=== PATIENT | female | born 1955 | race Caucasian/White ===

== ENCOUNTER → 2017-05-20 | Outpatient (CLI) | payer BC ==
--- NOTE | 2017-05-20 15:23 | REPMRS ---
Patient History The patient states she had a clinical breast exam in 05/2017. Patient is postmenopausal. Family history of breast cancer in paternal aunt. Reductions of both breasts, 2008. Taking unspecified hormones for 6 years 6 months. Digital Woman Screen Mammo: May 20, 2017 - Exam #: [id number] Bilateral CC and MLO view(s) were taken. Technologist: Chelle Clarke, Technologist Prior study comparison: May 18, 2016, digital woman screen mammo performed at [facility]. May 17, 2015, digital woman screen mammo performed at [facility]. FINDINGS: There are scattered fibroglandular densities. There has been no change in the appearance of the mammogram from the prior studies. There is a mild amount of residual fibroglandular tissue which is fairly symmetric. There is no interval development of dominant mass, architectural distortion, or clustered microcalcification suggestive of malignancy. ASSESSMENT: BI-RADS/ACR category 1 mammogram. Negative. Recommendation Routine screening mammogram in 1 year (for women over age 40). This mammogram was interpreted with the aid of an FDA-approved computer-aided dectection system. Electronically Signed By: Hayden Price MD 05/20/17 [id number]
== END ==
LOC: M WHC 14:32
PROVIDERS: ATTEND Nurse Practitioner Family
DX: Z12.31 Encounter for screening mammogram for malignant neoplasm of breast (principal); Z78.0 Asymptomatic menopausal state; Z79.890 Hormone replacement therapy

== ENCOUNTER → 2017-12-26 | Outpatient (CLI) | payer BC | LOC: M LRY 18:08 | DX: R01.1 Cardiac murmur, unspecified (principal); I10 Essential (primary) hypertension ==

== ENCOUNTER → 2018-06-27 | Outpatient (CLI) | payer BC | LOC: M WHC 14:39 | DX: Z12.31 Encounter for screening mammogram for malignant neoplasm of breast (principal) | CPT/HCPCS: 77067 ==

== ENCOUNTER → 2019-07-13 | Outpatient (CLI) | payer BC ==
--- NOTE | 2019-08-03 11:39 | ECWPNPC ---
PATIENT NAME: ALEJANDRA MARTIN : 1955 GENDER: FEMALE VISIT DATE: 07/13/2019 DISCHARGE DATE: 07/13/19 1602 VISIT LOCKED DATE TIME: PHYSICIAN: WILLIE HUNT MD RESOURCE: WILLIE HUNT MD REASON FOR APPOINTMENT 1. LEFT HIP PIRIFORMIS SYNDROME HISTORY OF PRESENT ILLNESS PAIN SCREENING: PATIENT HAS A COMPLAINT OF ACUTE OR CHRONIC PAIN :YES 64 YEAR OLD FEMALE PATIENT WITH A HISTORY OF CHRONIC LEFT LEG PAIN. THE PATIENT DESCRIBES THE PAIN ACHING, STABBING, CONSTANT, TENSE, AND SHOOTING WITH A PAIN SCORE OF 6-9/10 DEPENDING ON PHYSICAL ACTIVITY. THE PATIENT STATES HER LEFT LEG PAIN BEGAN ON 10/14/2018 AFTER SHE FELL IN HER DRIVEWAY DUE TO ICE THAT RESULTED IN A BROKEN SHOULDER AND HER LEG PAIN. THE PATIENT SAYS HER PAIN BEGINS IN HER LEFT BUTTOCK AND RADIATES DOWN THROUGH HER LEFT LEG TO HER ANKLE. THE PATIENT SAYS HER LEFT LEG PAIN IS AFFECTING HER ABILITY TO PERFORM HER DAILY ACTIVITIES SUCH BENDING, SITTING, AND WALKING. THE PATIENT SAYS NSAID'S DON'T TOUCH HER PAIN AND SHE WAS USING GABAPENTIN 300 MG UP TO TWO TABLET DAILY IN THE PAST THAT HELPED WITH PAIN RELIEF. THE PATIENT MENTIONS SHE HAS HAD LEFT GREATER TROCHANTER OF FEMUR INJECTIONS DONE IN THE PAST THAT HELPED PROVIDE SOME PAIN RELIEF FOR HER. PATIENT DENIES UNEXPLAINABLE WEIGHT LOSS, FEVER, CHILLS, NEW CHANGES ON HER URINARY OR BOWEL CONTROL. FALL RISK SCREENING: SCREENING :NO FALLS REPORTED IN THE LAST YEAR CURRENT MEDICATIONS TAKING TESTOSTERONE 2 MG/GRAM CREAM 1 GM TRANSDERMAL ONCE A DAY DX. CODE F MDD = 1 GRAM, NOTES: USE OF COMPOUNDED MEDICATIONS IS IN THE BEST CLINICAL INTEREST OF THIS PATIENT. CODE F TAKING ESTRIOL 1 MG CREAM 1/2 GM INTRAVAGINALLY TWICE WEEKLY, NOTES: CS-ESTRIOL, NATURAL WHIP CREAM TAKING LISINOPRIL 20 MG TABLET 1 TABLET ORALLY ONCE A DAY TAKING GABAPENTIN 300 MG CAPSULE 1 CAPSULE ORALLY ONCE A DAY TAKING CHLORTHALIDONE 25 MG TABLET 1/2 TABLET IN THE MORNING WITH FOOD ORALLY ONCE A DAY TAKING TRAMADOL HCL 50 MG TABLET 1 TABLET NEEDED ORALLY ONCE A DAY TAKING PROGESTERONE 40 % CREAM DIRECTED TAKING MARIZA-C - TABLET DIRECTED ORALLY TAKING GARLIC 580 MG CAPSULE DIRECTED ORALLY TAKING MAGNESIUM 400 MG CAPSULE DIRECTED ORALLY TAKING COQ10 200 MG CAPSULE 1 CAPSULE WITH A MEAL ORALLY ONCE A DAY TAKING CALCIUM + D 315-200 MG-UNIT TABLET 1 TABLET ORALLY TWICE A DAY TAKING MILK THISTLE 1000 MG CAPSULE DIRECTED ORALLY TAKING FENUGREEK 610 MG CAPSULE DIRECTED ORALLY TAKING MELATONIN 3-10 MG TABLET DIRECTED ORALLY TAKING METAXALONE 800 MG TABLET 1 TABLET ORALLY THREE TIMES A DAY MEDICATION LIST REVIEWED AND RECONCILED WITH THE PATIENT PAST MEDICAL HISTORY HYPERTENSION DDD (CERVICAL) DIVETICULITIS ATTACK 03/2015 MICROSCOPIC HEMATURIA [address] [facility]BASTIAN PAIGE [facility]. SURGICAL HISTORY BREAST REDUCTION C SECTION X 2 FX REPAIR LEFT LEG BILAT CARPAL RELEASE TUNNEL RIGHT KNEE FROM MENISCUS-ARTHOSCOPY X2 MOLE REMOVAL FROM LOWER BACK COLONOSCOPY 2015 HYSTERECTOMY WITH BSO LARGE FIBROID 10/2011 CYSTOSCOPY NORMAL 2016 LEFT LEG BROKEN PLATE PLACED FAMILY HISTORY FATHER: 82 YRS, DIABETES, BP MOTHER: 72 YRS, DIABETES, OSTEOPOROSIS, WITH SPINAL FX PATERNAL AUNT: MID 40'S YRS, BREAST CANCER 1 BROTHER(S) , 1 SISTER(S) . 1 SON(S) , 1 DAUGHTER(S) - HEALTHY. BROTHER AND SISTER BOTH WITH HYPERTENSION, ETOH DIFFICULTIES. DENIES FAMILY HX OF COLON OR OVARIAN CANCER. SOCIAL HISTORY GENERAL: TOBACCO USE ARE YOU A:FORMER SMOKER HOW LONG HAS IT BEEN SINCE YOU LAST SMOKED?> 10 YEARS HIV / HEP-C SCREENING HIV TEST OFFERED TO PATIENT:YES DATE OFFERED:06/27/2018 TEST ACCEPTED:NO REASON:PATIENT DECLINED BROCHURE PROVIDED TO PATIENTYES OTHERS AT HOME: SPOUSE. EDUCATION LEVEL OF EDUCATION:HIGH SCHOOL DIET: LOW FAT, LOW CHOLESTEROL,, CARBOHYDRATE CONTROLLED. IMPROVED AND HAS LOST 11 POUNDS OVER THE PAST FEW MONTHS.. LANGUAGE LANGUAGES SPOKEN:ALBANIAN DOMESTIC VIOLENCE DENIES ABUSE. BMI CARE GOAL FOLLOW-UP ABOVE NORMAL BMI FOLLOW-UPGIVING ENCOURAGEMENT TO EXERCISE RECREATIONAL DRUG USE DENIES. EXERCISE: NO REGULAR EXERCISE. LEARNING BARRIERS / SPECIAL NEEDS CHANGE FROM LAST VISIT?NO BARRIERS TO LEARNING?NO HEARING IMPAIRED?NO VISION IMPAIRED?YES :CORRECTIVE LENSES COGNITIVELY IMPAIRED?NO READINESS TO LEARN?YES LEARNING PREFERENCES?NO LEARNING CAPABILITIES PRESENT?YES EMOTIONAL BARRIERS?NO SPECIAL DEVICES?NO MANAGER RECRUITING NEEDED?NO PAIN CLINIC PFS, CLERGY, PUBLIC HEALTH REFERRALS HAS THE PATIENT BEEN EDUCATED REGARDING HIS/HER PLAN OF CARE?YES HAS THE PATIENT BEEN EDUCATED REGARDING PAIN, THE RISK FOR PAIN, THE IMPORTANCE OF EFFECTIVE PAIN MANAGEMENT, AND THE PAIN ASSESSMENT PROCESS?YES CAFFEINE 2 COFFEES IN AM. ADVANCE DIRECTIVE ADVANCE DIRECTIVE DISCUSSED WITH PATIENT:YES BAHAI [id number] [employer] MARITAL STATUS: . ALCOHOL SCREENING DID YOU HAVE A DRINK CONTAINING ALCOHOL IN THE PAST YEAR?YES HOW OFTEN DID YOU HAVE SIX OR MORE DRINKS ON ONE OCCASION IN THE PAST YEAR?NEVER (0 POINTS) HOW MANY DRINKS DID YOU HAVE ON A TYPICAL DAY WHEN YOU WERE DRINKING IN THE PAST YEAR?1 OR 2 (0 POINTS) HOW OFTEN DID YOU HAVE A DRINK CONTAINING ALCOHOL IN THE PAST YEAR?MONTHLY OR LESS (1 POINT) POINTS1 INTERPRETATIONNEGATIVE OCCUPATION: [employer] AT [employer]. SEXUAL HX HAD SEX IN THE LAST 12 MONTHS (VAGINAL, ORAL, OR ANAL)?NO LMP:POSTMENO HAVE YOU EVER HAD AN STD?NO HOSPITALIZATION/MAJOR DIAGNOSTIC PROCEDURE SURGERIES REVIEW OF SYSTEMS REVIEWED BY: PROVIDER: WILLIE HUNT MD . CONSTITUTIONAL: ANY CHANGE IN YOUR MEDICAL CONDITION? NO . CHILLS NO . FEVER NO . INFECTION: DO YOU HAVE NEW INFECTIONS? NO . DO YOU HAVE HISTORY OF MRSA? NO . MUSCULOSKELETAL: ANY NEW PATTERNS OF PAIN OR NUMBNESS? NO . SYTEMIC LUPUS NO . GASTROENTEROLOGY: ANY NEW CHANGE IN BOWEL CONTROL? NO . BARRETTS ESOPHAGUS NO . CIRRHOSIS NO . HEPATITIS NO . LIVER FAILURE NO . ACID REFLUX NO . UNEXPLAINED WEIGHT LOSS NO . GENITOURINARY: ANY NEW CHANGE IN BLADDER CONTROL? NO . IS THERE A CHANCE YOU COULD BE ? NO . HEMATOLOGY/LYMPH: DO YOU TAKE ANY BLOOD THINNERS? (FOR EXAMPLE- COUMADIN, PLAVIX, AGGRENOX, PLATEL, PRADAXA, OR XARELTO) NO . WHEN WAS YOUR LAST DOSE? DATE: TIME: . LOW PLATELET COUNT NO . SICKLE CELL DISEASE NO . VON WILLIEBRANDS NO . FACTOR V LEIDEN NO . THALLASEMIA NO . ANEMIA NO . EASY BRUISING NO . NEUROLOGY: HAVE YOU FALLEN IN THE PAST 12 MONTHS? YES, PT FELL 10/2018 FROM SLIPPING ON ICE . ANY NEW EXTREMITY NUMBNESS OR WEAKNESS? YES, LEFT SCIATICA . HEAD INJURY NO . DEMENTIA NO . CEREBRAL PALSY NO . MULTIPLE SCLEROSIS NO . DIZZINESS NO . HEADACHE NO . STROKES NO . VERTIGO NO . CARDIOLOGY: DO YOU HAVE A PACEMAKER OR DEFIBRILLATOR? NO . ANGINA NO . HEART ATTACK NO . HEART SURGERY NO . CONGESTIVE HEART FAILURE/FLUID OVERLOAD NO . CHEST PAIN NO . HIGH BLOOD PRESSURE NO . IRREGULAR HEART BEAT NO . RESPIRATORY: HAVE YOU BEEN SICK IN THE PAST WEEK? NO . FEVER NO . FLU LIKE SYMPTOMS? NO . CPAP NO . BYPAP NO . ASTHMA NO . EMPHYSEMA NO . CHRONIC LUNG DISEASES NO . SHORTNESS OF BREATH ON EXERTION NO . COUGH NO . SNORING NO . INTEGUMENTARY: DO YOU HAVE ANY RASHES OR OPEN SORES? NO . ALLERGIC/IMMUNO: ARE YOU ALLERGIC TO IV DYE? NO . ANY NEW ALLERGIES? NO . PSYCHIATRIC: DO YOU HAVE THOUGHTS OF HURTING YOURSELF OR SOMEONE ELSE? NO . ARE YOU ABUSED, NEGLECTED, OR IN AN UNSAFE ENVIRONMENT? NO . ENDOCRINOLOGY: ARE YOU DIABETIC? NO . THYROID DISORDER NO . OTHER: DO YOU NEED ANY PRESCRIPTIONS? YES, TRAMIDOL . IF YES, PLEASE LIST: ____ . ANY NEW PROBLEMS WITH YOUR MEDICATIONS? NO . WHEN DID YOU LAST EAT? ____ . WHEN DID YOU LAST DRINK? ____ . WHAT DID YOU LAST DRINK? ____ . NAME OF PERSON DRIVING YOU HOME? ____ . DO YOU HAVE ANY OTHER QUESTIONS OR CONCERNS YES, FLU SHOT MAYBE TODAY . VITAL SIGNS WT 207.8 LBS, HT 62 IN, BMI 38.00 INDEX, BP 143/70 MM HG, HR 85 /MIN, RR 18 /MIN, TEMP 96.0 F, OXYGEN SAT % 97%, NA INITIALS AW 1410, REVIEWED BY: EM. EXAMINATION GENERAL EXAMINATION: PATIENT IS ALERT O X 3 AND COOPERATIVE. LUNGS CLEAR, TO AUSCULTATION. HEART: NO MURMURS OR GALLOPS; FACIAL CRANIAL NERVES ARE GROSSLY NORMAL. GOOD SYMMETRY OF FACIAL MUSCLE MOVEMENT. NORMAL VISUAL BEAR. ANTALGIC WALK. PATIENT IS LIMPING FROM LEFT LEG. LEFT LEG IS WEAKER AT EXTENSION AND FLEXION. MILD TENDERNESS OVER THE GREATER TROCHANTER OF FEMUR. PAIN INCREASES OVER THE LEFT ISCHIAL TUBEROSITY. STRAIGHT LEG RAISE OF THE LEFT LEG IS NEGATIVE BUT AT 60 DEGREES LEG AND INGUINAL PAIN IS REPRODUCED. NO IMAGING STUDIES ARE PRESENT IN PATIENT'S CHART. 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 TREATMENT ISCHIAL BURSITIS OF LEFT SIDE [facility] MRI PELVIS WITHOUT [id number] CLINICAL NOTES: WE DISCUSSED SEVERAL ISSUES WITH MS. MARTIN'S PAIN MANAGEMENT CASE. I WILL REQUEST A COPY OF THE PATIENT'S LUMBAR SPINE MRI THAT WAS DONE AT [facility]. I AM ORDERING FOR A PELVIC MRI TO BE PERFORMED TO UNDERSTAND BETTER WHERE THE PATIENT'S PAIN IS ORIGINATING FROM. I WILL START THE PATIENT ON GABAPENTIN 300 MG TO AID IN PAIN RELIEF. I PROVIDED A SCHEDULE FOR THE PATIENT TO SLOWLY INCREASE UP TO 3 TABLETS DAILY IN ORDER TO AVOID ANY ADVERSE SIDE EFFECTS. THE PATIENT WILL FOLLOW UP WITH THE NURSE PRACTITIONER IN SEVERAL WEEKS TO GO OVER THE MRI RESULTS AND DISCUSS OPTIONS TO PROCEED WITH. INSTRUCTIONS WERE GIVEN, QUESTIONS WERE ANSWERED, PATIENT REPORTS UNDERSTANDING AND AGREES WITH THE PLAN. I, MASOOD CHRISTOPHER, DOCUMENTED THE ABOVE INFORMATION ACTING A SCRIBE FOR DR. HUNT. I HAVE REVIEWED THE ABOVE DOCUMENT, WRITTEN BY MASOOD CHRISTOPHER SCRIBFozia AND I VERIFY THAT IT IS ACCURATE. DEAR TRISH WU: THANK YOU FOR YOUR KIND REFERRAL OF ALEJANDRA MARTIN. IF YOU WANT TO DISCUSS HER CASE WITH ME PLEASE CALL ME AT THE PAIN CENTER AT [phone]. SINCERELY, WILLIE HUNT MD PAIN MEDICINE . OTHERS CONTINUE GABAPENTIN CAPSULE, 300 MG, 1 CAPSULE, ORALLY FOR PAIN, THREE TIMES DAILY MDD3, 30 DAYS, 90, REFILLS 1 PROCEDURE CODES FA211 ESTABILISHED PATIENT [facility] FACILITY CHARGE G8427 CURRENT MEDS W/DOSAGES DOCUMENTED G8730 PAIN ASSESS POS TOOL F/U PLAN DOC DISPOSITION & COMMUNICATION FOLLOW UP REASON: F/UP W/ AVAYA ENGINEER, PELVIC MRI ELECTRONICALLY SIGNED BY WILLIE HUNT MD, ON 07/22/2019 AT 07:06 PM EDT DISCLAIMER : THIS IS A VISIT SUMMARY EXTRACTED FROM THE [employer] CHART. IT IS NOT A COPY OF THE [employer] PROGRESS NOTE. ELVIAD
== END ==
LOC: M PAIN 14:00
PROVIDERS: ATTEND Anesthesiology
DX: M70.72 Other bursitis of hip, left hip (principal); G89.29 Other chronic pain; I10 Essential (primary) hypertension; Z87.891 Personal history of nicotine dependence; Z79.899 Other long term (current) drug therapy

== ENCOUNTER → 2019-07-24 | Outpatient (CLI) | payer BC ==
--- NOTE | 2019-07-24 16:47 | REPMRS ---
Patient History The patient states she had a clinical breast exam in 07/2019. Patient is postmenopausal. Family history of breast cancer in paternal aunt. Reductions of both breasts, 2008. Taking unspecified hormones for 8 years 7 months. Digital Woman Screen Mammo: July 24, 2019 - Exam #: [id number] Bilateral CC and MLO view(s) were taken. Technologist: Janina Balderas, Technologist Prior study comparison: June 27, 2018, bilateral digital woman screen mammo performed at [facility]. May 20, 2017, digital woman screen mammo performed at [facility]. May 18, 2016, digital woman screen mammo performed at [facility]. FINDINGS: The breast tissue is almost entirely fat. There has been no change in the appearance of the mammogram from the prior studies. There is no interval development of dominant mass, architectural distortion, or grouped microcalcification typical of malignancy. 3-D tomosynthesis shows no additional findings. Assessment: BI-RADS/ACR category 1 mammogram. Negative Mammogram. Recommendation Routine screening mammogram of both breasts in 1 year (for women over age 40). This patient's Lifetime Breast Cancer RIsk is estimated at 12.3 %. This mammogram was interpreted with the aid of an FDA-approved computer-aided dectection system. Electronically Signed By: Maged Singh MD 07/24/19 [id number]
== END ==
LOC: M WHC 14:46
PROVIDERS: ATTEND Nurse Practitioner Family
DX: Z12.31 Encounter for screening mammogram for malignant neoplasm of breast (principal); Z78.0 Asymptomatic menopausal state; Z92.29 Personal history of other drug therapy

== ENCOUNTER → 2019-08-07 | Outpatient (CLI) | payer BC ==
--- NOTE | 2019-08-25 02:52 | ECWPNPC ---
PATIENT NAME: ALEJANDRA MARTIN : 1955 GENDER: FEMALE VISIT DATE: 08/07/2019 DISCHARGE DATE: 08/07/19 1514 VISIT LOCKED DATE TIME: PHYSICIAN: JEANA HANSEN RESOURCE: JEANA HANSEN REASON FOR APPOINTMENT 1. PELVIC MRI DENIAL/ DISCUSS OPTIONS HISTORY OF PRESENT ILLNESS HISTORY OF PRESENT ILLNESS: PAIN THE PATIENT DESCRIBES THE PAIN... FALL RISK SCREENING: SCREENING :NO FALLS REPORTED IN THE LAST YEAR PAIN SCREENING: PATIENT HAS A COMPLAINT OF ACUTE OR CHRONIC PAIN :YES 64 YEAR OLD FEMALE PATIENT WITH A HISTORY OF CHRONIC LEFT LOW BUTTOCK/LATERAL THIGH PAIN. THE PATIENT DESCRIBES THE PAIN ACHING, STABBING, CONSTANT, TENSE, AND SHOOTING WITH A PAIN SCORE OF 5-7/10 DEPENDING ON PHYSICAL ACTIVITY. THE PATIENT STATES HER LEFT LEG PAIN BEGAN ON 10/14/2018 AFTER SHE FELL IN HER DRIVEWAY DUE TO ICE THAT RESULTED IN A BROKEN SHOULDER AND HER LEG PAIN. THE PATIENT SAYS HER PAIN BEGINS IN HER LEFT BUTTOCK AND RADIATES DOWN THROUGH HER LEFT LEG TO HER ANKLE. THE PATIENT SAYS HER LEFT LEG PAIN IS AFFECTING HER ABILITY TO PERFORM HER DAILY ACTIVITIES SUCH BENDING, SITTING, AND WALKING. THE PATIENT SAYS NSAID'S DON'T TOUCH HER PAIN AND SHE WAS USING GABAPENTIN 300 MG UP TO TWO TABLET DAILY IN THE PAST THAT HELPED WITH PAIN RELIEF. THE PATIENT MENTIONS SHE HAS HAD LEFT GREATER TROCHANTER OF FEMUR INJECTIONS DONE IN THE PAST THAT HELPED PROVIDE SOME PAIN RELIEF FOR HER. CURRENT MEDICATIONS TAKING GABAPENTIN 300 MG CAPSULE 1 CAPSULE ORALLY FOR PAIN THREE TIMES DAILY MDD3, NOTES: OCC TAKING LISINOPRIL 40 MG TABLET 1 TABLET ORALLY ONCE A DAY TAKING CHLORTHALIDONE 25 MG TABLET 1/2 TABLET IN THE MORNING WITH FOOD ORALLY ONCE A DAY TAKING TRAMADOL HCL 50 MG TABLET 1 TABLET NEEDED ORALLY ONCE A DAY TAKING MARIZA-C - TABLET DIRECTED ORALLY TAKING GARLIC 580 MG CAPSULE DIRECTED ORALLY TAKING MAGNESIUM 400 MG CAPSULE DIRECTED ORALLY TAKING COQ10 200 MG CAPSULE 1 CAPSULE WITH A MEAL ORALLY ONCE A DAY TAKING CALCIUM + D 315-200 MG-UNIT TABLET 1 TABLET ORALLY TWICE A DAY TAKING MILK THISTLE 1000 MG CAPSULE DIRECTED ORALLY , NOTES: OCC TAKING FENUGREEK 610 MG CAPSULE DIRECTED ORALLY TAKING MELATONIN 3-10 MG TABLET DIRECTED ORALLY TAKING METAXALONE 800 MG TABLET 1 TABLET ORALLY THREE TIMES A DAY PRN TAKING PROGESTERONE DIRECTED CREAM 1/2 GM TOPICALLY TWICE A DAY TAKING ESTRADIOL DIRECTED CREAM 1 GM TRANSDERMAL DAILY TAKING ASPIRIN 81 81 MG TABLET DELAYED RELEASE 1 TABLET ORALLY ONCE A DAY, NOTES: TAKES OCCASSIONALLY NOT-TAKING PROGESTERONE 40 % CREAM DIRECTED , NOTES: DUPLICATE NOT-TAKING TESTOSTERONE 2 MG/GRAM CREAM 1 GM TRANSDERMAL ONCE A DAY DX. CODE F MDD = 1 GRAM, NOTES: STOPPED PER PATIENT NOT-TAKING ESTRIOL 1 MG CREAM 1/2 GM INTRAVAGINALLY TWICE WEEKLY, NOTES: NOT TAKING PER PATIENT MEDICATION LIST REVIEWED AND RECONCILED WITH THE PATIENT PAST MEDICAL HISTORY HYPERTENSION DDD (CERVICAL) DIVETICULITIS ATTACK 03/2015 MICROSCOPIC HEMATURIA [address] [facility] SURGICAL HISTORY BREAST REDUCTION C SECTION X 2 FX REPAIR LEFT LEG BILAT CARPAL RELEASE TUNNEL RIGHT KNEE FROM MENISCUS-ARTHOSCOPY X2 MOLE REMOVAL FROM LOWER BACK COLONOSCOPY 2015 HYSTERECTOMY WITH BSO LARGE FIBROID 10/2011 CYSTOSCOPY NORMAL 2016 LEFT LEG BROKEN PLATE PLACED FAMILY HISTORY FATHER: 82 YRS, DIABETES, BP MOTHER: 72 YRS, DIABETES, OSTEOPOROSIS, WITH SPINAL FX PATERNAL AUNT: , BREAST CANCER 1 BROTHER(S) , 1 SISTER(S) . 1 SON(S) , 1 DAUGHTER(S) - HEALTHY. BROTHER AND SISTER BOTH WITH HYPERTENSION, ETOH DIFFICULTIES. DENIES FAMILY HX OF COLON OR OVARIAN CANCER. SOCIAL HISTORY GENERAL: TOBACCO USE ARE YOU A:FORMER SMOKER HOW LONG HAS IT BEEN SINCE YOU LAST SMOKED?> 10 YEARS HIV / HEP-C SCREENING HIV TEST OFFERED TO PATIENT:YES DATE OFFERED:06/27/2018 TEST ACCEPTED:NO REASON:PATIENT DECLINED BROCHURE PROVIDED TO PATIENTYES OTHERS AT HOME: SPOUSE. EDUCATION LEVEL OF EDUCATION:HIGH SCHOOL DIET: LOW FAT, LOW CHOLESTEROL,, CARBOHYDRATE CONTROLLED. IMPROVED AND HAS LOST 11 POUNDS OVER THE PAST FEW MONTHS.. LANGUAGE LANGUAGES SPOKEN:LAO DOMESTIC VIOLENCE DENIES ABUSE. BMI CARE GOAL FOLLOW-UP ABOVE NORMAL BMI FOLLOW-UPGIVING ENCOURAGEMENT TO EXERCISE RECREATIONAL DRUG USE DENIES. EXERCISE: NO REGULAR EXERCISE. LEARNING BARRIERS / SPECIAL NEEDS CHANGE FROM LAST VISIT?NO BARRIERS TO LEARNING?NO HEARING IMPAIRED?NO VISION IMPAIRED?YES COGNITIVELY IMPAIRED?NO :CORRECTIVE LENSES READINESS TO LEARN?YES LEARNING PREFERENCES?NO LEARNING CAPABILITIES PRESENT?YES EMOTIONAL BARRIERS?NO SPECIAL DEVICES?NO LAWN MOWER REPAIRER NEEDED?NO PAIN CLINIC PFS, CLERGY, PUBLIC HEALTH REFERRALS HAS THE PATIENT BEEN EDUCATED REGARDING HIS/HER PLAN OF CARE?YES HAS THE PATIENT BEEN EDUCATED REGARDING PAIN, THE RISK FOR PAIN, THE IMPORTANCE OF EFFECTIVE PAIN MANAGEMENT, AND THE PAIN ASSESSMENT PROCESS?YES LATEX QUESTIONNAIRE LATEX ALLERGY : HAVE YOU EVER DEVELOPED ANY TYPE OF REACTION AFTER HANDLING LATEX PRODUCTS SUCH RUBBER GLOVES, CONDOMS, DIAPHRAGMS, BALLOONS, SOCKS, OR UNDERWEAR?NO LATEX ALLERGY : HAVE YOU EVER DEVELOPED ANY TYPE OF REACTION DURING OR AFTER DENTAL APPOINTMENT, VAGINAL/RECTAL EXAMINATION, SURGICAL PROCEDURE, OR ANY OTHER EXPOSURE?NO LATEX RISK : HAVE YOU EVER HAD ANY DIFFICULTY BREATHING OR HIVES AFTER EATING OR HANDLING ANY FRUITS, OR VEGETABLES; SUCH KIWI, BANANAS, STONE FRUITS, OR CHESTNUTSNO LATEX RISK : DO YOU HAVE A PREVIOUS PERSONAL HISTORY OF MORE THAN NINE SURGERIES, SPINA BIFIDA, OR REPEATED CATHERIZATIONS? NO LATEX RISK : ARE YOU FREQUENTLY EXPOSED TO LATEX PRODUCTS IN YOUR OCCUPATION?YES DATE ASKED : 07/24/2019 CAFFEINE 2 COFFEES IN AM. ADVANCE DIRECTIVE ADVANCE DIRECTIVE DISCUSSED WITH PATIENT:YES HCP - BRITTANY MARTIN () CAODAISM [id number] ORTHODOXY MARITAL STATUS: . ALCOHOL SCREENING DID YOU HAVE A DRINK CONTAINING ALCOHOL IN THE PAST YEAR?YES HOW OFTEN DID YOU HAVE SIX OR MORE DRINKS ON ONE OCCASION IN THE PAST YEAR?NEVER (0 POINTS) HOW MANY DRINKS DID YOU HAVE ON A TYPICAL DAY WHEN YOU WERE DRINKING IN THE PAST YEAR?1 OR 2 (0 POINTS) HOW OFTEN DID YOU HAVE A DRINK CONTAINING ALCOHOL IN THE PAST YEAR?MONTHLY OR LESS (1 POINT) POINTS1 INTERPRETATIONNEGATIVE OCCUPATION: [employer] AT [employer]. SEXUAL HX HAD SEX IN THE LAST 12 MONTHS (VAGINAL, ORAL, OR ANAL)?YES WITHMEN ONLY USE PROTECTION?NO LMP:POSTMENO HAVE YOU EVER HAD AN STD?NO REVIEWED WITH PATIENT 08/07/19 5880 JS. HOSPITALIZATION/MAJOR DIAGNOSTIC PROCEDURE SURGERIES REVIEW OF SYSTEMS REVIEWED BY: PROVIDER: JEANA MILLER . CONSTITUTIONAL: ANY CHANGE IN YOUR MEDICAL CONDITION? NO . CHILLS NO . FEVER NO . INFECTION: DO YOU HAVE NEW INFECTIONS? NO . DO YOU HAVE HISTORY OF MRSA? NO . MUSCULOSKELETAL: ANY NEW PATTERNS OF PAIN OR NUMBNESS? NO . GASTROENTEROLOGY: ANY NEW CHANGE IN BOWEL CONTROL? NO . GENITOURINARY: ANY NEW CHANGE IN BLADDER CONTROL? NO . IS THERE A CHANCE YOU COULD BE ? NO . HEMATOLOGY/LYMPH: DO YOU TAKE ANY BLOOD THINNERS? (FOR EXAMPLE- COUMADIN, PLAVIX, AGGRENOX, PLATEL, PRADAXA, OR XARELTO) NO . WHEN WAS YOUR LAST DOSE? DATE: TIME: . NEUROLOGY: HAVE YOU FALLEN IN THE PAST 12 MONTHS? YES, STATES PRIOR TO LAST VISIT, DISCUSSED AT LAST VISIT . ANY NEW EXTREMITY NUMBNESS OR WEAKNESS? YES, STATES WEAKNESS TO RIGHT ARM . CARDIOLOGY: DO YOU HAVE A PACEMAKER OR DEFIBRILLATOR? NO . RESPIRATORY: HAVE YOU BEEN SICK IN THE PAST WEEK? YES, STATES SHE HAD A COLD A COUPLE WEEKS AGO . FEVER NO . FLU LIKE SYMPTOMS? NO . COUGH YES . INTEGUMENTARY: DO YOU HAVE ANY RASHES OR OPEN SORES? NO . ALLERGIC/IMMUNO: ARE YOU ALLERGIC TO IV DYE? NO . ANY NEW ALLERGIES? NO . PSYCHIATRIC: DO YOU HAVE THOUGHTS OF HURTING YOURSELF OR SOMEONE ELSE? NO . ARE YOU ABUSED, NEGLECTED, OR IN AN UNSAFE ENVIRONMENT? NO . ENDOCRINOLOGY: ARE YOU DIABETIC? NO . OTHER: DO YOU NEED ANY PRESCRIPTIONS? NO . IF YES, PLEASE LIST: ____ . ANY NEW PROBLEMS WITH YOUR MEDICATIONS? NO . WHEN DID YOU LAST EAT? ____ . WHEN DID YOU LAST DRINK? ____ . WHAT DID YOU LAST DRINK? ____ . NAME OF PERSON DRIVING YOU HOME? ____ . DO YOU HAVE ANY OTHER QUESTIONS OR CONCERNS NO . VITAL SIGNS WT 210 LBS, HT 62 IN, BMI 38.41 INDEX, BP 136/70 MM HG, HR 81 /MIN, RR 18 /MIN, TEMP 96%, OXYGEN SAT % 96%, SAFE IN ENV? (Y/N) YES, NA INITIALS NJ 14:42, REVIEWED BY: JACKELINE. ASSESSMENTS PIRIFORMIS MUSCLE PAIN - M79.18 (PRIMARY) TREATMENT PIRIFORMIS MUSCLE PAIN BRYCE PELVIS [id number],LISA 08/10/2019 11:53:55 AM > NO AUTH NEEDED BIANCA WEINER 08/18/2019 4:44:33 PM > DUPLICATE ORDER NOTES: LEFT PIRIFORMIS STEROID INJECTION. PREVENTIVE MEDICINE PAIN CLINIC TEACHING: PROCEDURE TEACHING PRINTED AND REVIEWED INFORMATION ON PIRIFORMIS MUSCLE INJECTION WITH PATIENT. ALSO REVIEWED PRE-PROCEDURE INSTRUCTIONS. PATIENT VERBALIZED AN UNDERSTANDING. BIANCA WEINER 08/07/2019 3:13:24 PM > . PROCEDURE CODES FA211 ESTABILISHED PATIENT [facility] CHARGE DISPOSITION & COMMUNICATION FOLLOW UP POST (REASON: LEFT PIRIFORMIS STEROID INJECTION) ELECTRONICALLY SIGNED BY ANGELA FRY ON 08/24/2019 AT 01:38 PM EST DISCLAIMER : THIS IS A VISIT SUMMARY EXTRACTED FROM THE [employer] CHART. IT IS NOT A COPY OF THE [employer] PROGRESS NOTE. ASHLEY
== END ==
LOC: M PAIN 14:15
PROVIDERS: ATTEND Nurse Practitioner Family
DX: M79.18 Myalgia, other site (principal); I10 Essential (primary) hypertension; Z87.891 Personal history of nicotine dependence; Z79.82 Long term (current) use of aspirin; Z79.899 Other long term (current) drug therapy

== ENCOUNTER → 2019-08-13 | Outpatient (CLI) | payer BC ==
--- NOTE | 2019-08-13 13:59 | REP ---
AP pelvis: Single view. History: Piriformis muscle pain. Findings: The bony pelvic ring is intact. Femoral heads are smooth and rounded and hip joint spaces are preserved. There is minimal spurring at the symphysis pubis. Sacrum and SI joints are intact. Periarticular soft tissues are unremarkable. There are degenerative spondylosis changes in the lower lumbar spine. Visualized bowel gas pattern is normal. Impression: No acute abnormality. Electronically Signed by Colin Singh MD 08/13/2019 01:50 P
== END ==
LOC: M RAD 13:31
PROVIDERS: ATTEND Nurse Practitioner Family
DX: M79.18 Myalgia, other site (principal)

== ENCOUNTER → 2019-09-03 | Outpatient (CLI) | payer BC ==
[~2019-09-03] MED LIST: BUPIVACAINE HCL 0.25% 30 ML VIAL As Ordered ONE; ISOVUE-M 300 61% 15ML VIAL (Q9967) As Ordered ONE; LIDOCAINE 1% SDV INJ 30 ML VIAL As Ordered ONE; NORCO, ANEXSIA 5/325MG TABLET (HYDROcodone/ACETAMINOPHEN) As Ordered ONE; TRIAMCINOLONE ACETONIDE SUSP 40 MG/ML VIAL (J3301) As Ordered ONE; diazePAM 5 MG TAB As Ordered ONE
--- NOTE | 2019-09-03 14:49 | REP ---
Two fluoroscopic images: 09/03/2019. Indication: Operative/procedural new fluoroscopic guidance requested. Findings: Two spot fluoroscopic images were obtained for operative/procedural guidance. Please see operative/procedural report for details. Impression: Fluoroscopy provided for operative/procedural guidance. 6 seconds of fluoroscopy time utilized. Electronically Signed by Frank Robles DO 09/03/2019 02:41 P
--- NOTE | 2019-09-23 03:12 | ECWPNPC ---
PATIENT NAME: ALEJANDRA MARTIN : 1955 GENDER: FEMALE VISIT DATE: 09/03/2019 DISCHARGE DATE: 09/03/19 1508 VISIT LOCKED DATE TIME: PHYSICIAN: WILLIE HUNT MD RESOURCE: WILLIE HUNT MD REASON FOR APPOINTMENT 1. LEFT PIRIFORMIS STEROID INJECTION HISTORY OF PRESENT ILLNESS HISTORY OF PRESENT ILLNESS: PAIN THE PATIENT DESCRIBES THE PAIN... FALL RISK SCREENING: SCREENING :NO FALLS REPORTED IN THE LAST YEAR CURRENT MEDICATIONS TAKING LISINOPRIL 40 MG TABLET 1 TABLET ORALLY ONCE A DAY, NOTES: 09/02 2030 TAKING CHLORTHALIDONE 25 MG TABLET 1/2 TABLET IN THE MORNING WITH FOOD ORALLY ONCE A DAY, NOTES: 09/03 700 TAKING TRAMADOL HCL 50 MG TABLET 1 TABLET NEEDED ORALLY ONCE A DAY, NOTES: 09/02 1400 TAKING MELATONIN 10 MG TABLET 3 TABS ORALLY BEFORE BEDTIME, NOTES: 09/02 2000 TAKING METAXALONE 800 MG TABLET 1 TABLET ORALLY THREE TIMES A DAY PRN, NOTES: NONE RECENT TAKING PROGESTERONE DIRECTED CREAM 1/2 GM TOPICALLY TWICE A DAY, NOTES: 09/03 700 TAKING ESTRADIOL DIRECTED CREAM 1 GM TRANSDERMAL DAILY, NOTES: 09/03 700 NOT-TAKING GABAPENTIN 300 MG CAPSULE 1 CAPSULE ORALLY FOR PAIN THREE TIMES DAILY MDD3 NOT-TAKING MARIZA-C - TABLET 1 TAB ORALLY DAILY NOT-TAKING GARLIC 580 MG CAPSULE 1 CAP ORALLY DAILY NOT-TAKING MAGNESIUM 400 MG CAPSULE 1 CAP ORALLY EVERY 4 HOURS NEEDED NOT-TAKING COQ10 200 MG CAPSULE 1 CAPSULE WITH A MEAL ORALLY ONCE A DAY NOT-TAKING CALCIUM + D 315-200 MG-UNIT TABLET 1 TABLET ORALLY TWICE A DAY NOT-TAKING MILK THISTLE 1000 MG CAPSULE DIRECTED ORALLY , NOTES: OCC NOT-TAKING ASPIRIN 81 81 MG TABLET DELAYED RELEASE 1 TABLET ORALLY ONCE A DAY, NOTES: TAKES OCCASSIONALLY NOT-TAKING TESTOSTERONE 2 MG/GRAM CREAM 1 GM TRANSDERMAL ONCE A DAY DX. CODE F MDD = 1 GRAM, NOTES: STOPPED PER PATIENT NOT-TAKING ESTRIOL 1 MG CREAM 1/2 GM INTRAVAGINALLY TWICE WEEKLY, NOTES: NOT TAKING PER PATIENT DISCONTINUED FENUGREEK 610 MG CAPSULE DIRECTED ORALLY DISCONTINUED PROGESTERONE 40 % CREAM DIRECTED , NOTES: DUPLICATE MEDICATION LIST REVIEWED AND RECONCILED WITH THE PATIENT PAST MEDICAL HISTORY HYPERTENSION DDD (CERVICAL) DIVETICULITIS ATTACK 03/2015 MICROSCOPIC HEMATURIA [address] CORTES DIVERTICULITIS ATTACK 08/2019 ALLERGIES N.K.D.A. SURGICAL HISTORY BREAST REDUCTION C SECTION X 2 FX REPAIR LEFT LEG BILAT CARPAL RELEASE TUNNEL RIGHT KNEE FROM MENISCUS-ARTHOSCOPY X2 MOLE REMOVAL FROM LOWER BACK COLONOSCOPY 2015 HYSTERECTOMY WITH BSO LARGE FIBROID 10/2011 CYSTOSCOPY NORMAL 2016 LEFT LEG BROKEN PLATE PLACED FAMILY HISTORY FATHER: 82 YRS, DIABETES, BP MOTHER: 72 YRS, DIABETES, OSTEOPOROSIS, WITH SPINAL FX PATERNAL AUNT: , BREAST CANCER 1 BROTHER(S) , 1 SISTER(S) . 1 SON(S) , 1 DAUGHTER(S) - HEALTHY. BROTHER AND SISTER BOTH WITH HYPERTENSION, ETOH DIFFICULTIES. DENIES FAMILY HX OF COLON OR OVARIAN CANCER. SOCIAL HISTORY GENERAL: TOBACCO USE ARE YOU A:FORMER SMOKER HOW LONG HAS IT BEEN SINCE YOU LAST SMOKED?> 10 YEARS HIV / HEP-C SCREENING HIV TEST OFFERED TO PATIENT:YES DATE OFFERED:06/27/2018 TEST ACCEPTED:NO REASON:PATIENT DECLINED BROCHURE PROVIDED TO PATIENTYES OTHERS AT HOME: SPOUSE. EDUCATION LEVEL OF EDUCATION:HIGH SCHOOL DIET: LOW FAT, LOW CHOLESTEROL,, CARBOHYDRATE CONTROLLED. IMPROVED AND HAS LOST 11 POUNDS OVER THE PAST FEW MONTHS.. LANGUAGE LANGUAGES SPOKEN:[place] DOMESTIC VIOLENCE DENIES ABUSE. BMI CARE GOAL FOLLOW-UP ABOVE NORMAL BMI FOLLOW-UPGIVING ENCOURAGEMENT TO EXERCISE RECREATIONAL DRUG USE DENIES. EXERCISE: NO REGULAR EXERCISE. LEARNING BARRIERS / SPECIAL NEEDS CHANGE FROM LAST VISIT?NO BARRIERS TO LEARNING?NO HEARING IMPAIRED?NO VISION IMPAIRED?YES :CORRECTIVE LENSES COGNITIVELY IMPAIRED?NO READINESS TO LEARN?YES LEARNING PREFERENCES?NO LEARNING CAPABILITIES PRESENT?YES EMOTIONAL BARRIERS?NO SPECIAL DEVICES?NO POWER BENDER OPERATOR NEEDED?NO PAIN CLINIC PFS, CLERGY, PUBLIC HEALTH REFERRALS HAS THE PATIENT BEEN EDUCATED REGARDING HIS/HER PLAN OF CARE?YES HAS THE PATIENT BEEN EDUCATED REGARDING PAIN, THE RISK FOR PAIN, THE IMPORTANCE OF EFFECTIVE PAIN MANAGEMENT, AND THE PAIN ASSESSMENT PROCESS?YES LATEX QUESTIONNAIRE LATEX ALLERGY : HAVE YOU EVER DEVELOPED ANY TYPE OF REACTION AFTER HANDLING LATEX PRODUCTS SUCH RUBBER GLOVES, CONDOMS, DIAPHRAGMS, BALLOONS, SOCKS, OR UNDERWEAR?NO LATEX ALLERGY : HAVE YOU EVER DEVELOPED ANY TYPE OF REACTION DURING OR AFTER DENTAL APPOINTMENT, VAGINAL/RECTAL EXAMINATION, SURGICAL PROCEDURE, OR ANY OTHER EXPOSURE?NO LATEX RISK : HAVE YOU EVER HAD ANY DIFFICULTY BREATHING OR HIVES AFTER EATING OR HANDLING ANY FRUITS, OR VEGETABLES; SUCH KIWI, BANANAS, STONE FRUITS, OR CHESTNUTSNO LATEX RISK : DO YOU HAVE A PREVIOUS PERSONAL HISTORY OF MORE THAN NINE SURGERIES, SPINA BIFIDA, OR REPEATED CATHERIZATIONS? YES - PLEASE INDICATE : > 9 SURGERIES LATEX RISK : ARE YOU FREQUENTLY EXPOSED TO LATEX PRODUCTS IN YOUR OCCUPATION?NO DATE ASKED : 09/03/2019 CAFFEINE 2 COFFEES IN AM. ADVANCE DIRECTIVE ADVANCE DIRECTIVE DISCUSSED WITH PATIENT:YES HCP - BRITTANY MARTIN () LUTHERAN [id number] YAZDANISM MARITAL STATUS: . ALCOHOL SCREENING DID YOU HAVE A DRINK CONTAINING ALCOHOL IN THE PAST YEAR?YES HOW OFTEN DID YOU HAVE SIX OR MORE DRINKS ON ONE OCCASION IN THE PAST YEAR?NEVER (0 POINTS) HOW MANY DRINKS DID YOU HAVE ON A TYPICAL DAY WHEN YOU WERE DRINKING IN THE PAST YEAR?1 OR 2 (0 POINTS) HOW OFTEN DID YOU HAVE A DRINK CONTAINING ALCOHOL IN THE PAST YEAR?MONTHLY OR LESS (1 POINT) POINTS1 INTERPRETATIONNEGATIVE OCCUPATION: [employer]. SEXUAL HX HAD SEX IN THE LAST 12 MONTHS (VAGINAL, ORAL, OR ANAL)?YES WITHMEN ONLY USE PROTECTION?NO LMP:POSTMENO HAVE YOU EVER HAD AN STD?NO REVIEWED WITH PATIENT 08/07/19 1440 JS09/03/19 REVIEWED WITH PT. AD. HOSPITALIZATION/MAJOR DIAGNOSTIC PROCEDURE SURGERIES REVIEW OF SYSTEMS REVIEWED BY: PROVIDER: . CONSTITUTIONAL: ANY CHANGE IN YOUR MEDICAL CONDITION? YES, DIVERTICULITIS INFECTION TREATED WITH ANTIBIOTIC THAT SHE COMPLETED YEST. DR. HUNT AWARE AND OKAY TO PROCEED WITH THE PROCEDURE. . CHILLS NO . FEVER NO . INFECTION: DO YOU HAVE NEW INFECTIONS? YES, DIVERTICUTLISTIS . DO YOU HAVE HISTORY OF MRSA? NO . MUSCULOSKELETAL: ANY NEW PATTERNS OF PAIN OR NUMBNESS? NO . GASTROENTEROLOGY: ANY NEW CHANGE IN BOWEL CONTROL? NO . GENITOURINARY: ANY NEW CHANGE IN BLADDER CONTROL? NO . IS THERE A CHANCE YOU COULD BE ? NO . HEMATOLOGY/LYMPH: DO YOU TAKE ANY BLOOD THINNERS? (FOR EXAMPLE- COUMADIN, PLAVIX, AGGRENOX, PLATEL, PRADAXA, OR XARELTO) NO . WHEN WAS YOUR LAST DOSE? DATE: TIME: . NEUROLOGY: HAVE YOU FALLEN IN THE PAST 12 MONTHS? YES, LAST OCT. SLIPPED ON ICE, BROKE RIGHT SHOULDER . ANY NEW EXTREMITY NUMBNESS OR WEAKNESS? NO . CARDIOLOGY: DO YOU HAVE A PACEMAKER OR DEFIBRILLATOR? NO . RESPIRATORY: HAVE YOU BEEN SICK IN THE PAST WEEK? YES, DIVERTICULITIS . FEVER NO . FLU LIKE SYMPTOMS? NO . COUGH NO . INTEGUMENTARY: DO YOU HAVE ANY RASHES OR OPEN SORES? NO . ALLERGIC/IMMUNO: ARE YOU ALLERGIC TO IV DYE? NO . ANY NEW ALLERGIES? NO . PSYCHIATRIC: DO YOU HAVE THOUGHTS OF HURTING YOURSELF OR SOMEONE ELSE? NO . ARE YOU ABUSED, NEGLECTED, OR IN AN UNSAFE ENVIRONMENT? NO . ENDOCRINOLOGY: ARE YOU DIABETIC? NO . OTHER: DO YOU NEED ANY PRESCRIPTIONS? NO . IF YES, PLEASE LIST: ____ . ANY NEW PROBLEMS WITH YOUR MEDICATIONS? NO . WHEN DID YOU LAST EAT? 09/03 0500 . WHEN DID YOU LAST DRINK? 09/03 09 . WHAT DID YOU LAST DRINK? GINGERALE . NAME OF PERSON DRIVING YOU HOME? FAHEEM HARRIS . DO YOU HAVE ANY OTHER QUESTIONS OR CONCERNS NO PT HAS NOT HAD ANY VACCINES IN THE PAST 30 DAYS . VITAL SIGNS WT 208.0 LBS, HT 62 IN, BMI 38.04 INDEX, BP 140/66 MM HG, HR 80 /MIN, RR 18 /MIN, TEMP 97.7 F, OXYGEN SAT % 99%, NA INITIALS AW 1147, REVIEWED BY: MILTON. 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 MYALGIAPOSTOPERATIVE DIAGNOSIS: LEFT PIRIFORMIS SYNDROME. MYALGIAPROCEDURE: LEFT PIRIFORMIS MUSCLE BLOCK UNDER FLUOROSCOPIC GUIDANCE.ANESTHESIA: LOCAL.SURGEON: WILLIE STOREY M.D.PREOPERATIVE NOTE: THE PATIENT HAS HISTORY OF CHRONIC LOW BACK PAIN. I EVALUATED THE PATIENT AND REVIEWED THE CHART. WE BOTH AGREED ON PERFORMING A LEFT PIRIFORMIS MUSCLE BLOCK UNDER FLUOROSCOPIC GUIDANCE. I WENT THROUGH THE RISKS, ALTERNATIVES AND BENEFITS ASSOCIATED WITH THIS PROCEDURE AND THE PATIENT EXPRESSED THAT SHE WOULD LIKE TO PROCEED. THE PATIENT DENIES UNEXPLAINABLE WEIGHT LOSS, FEVER, CHILLS, OR CHANGES IN URINARY OR BOWEL CONTROL.PROCEDURE NOTE: AFTER CONSENT WAS TAKEN, THE PATIENT WAS BROUGHT TO THE PROCEDURE ROOM AND THE PATIENT WAS PLACED IN THE PRONE POSITION. THE LUMBOSACRAL AREA WAS CLEANED WITH CHLORAPREP SOLUTION AND DRAPED ASEPTICALLY. THE PROCEDURE WAS DONE UNDER STERILE CONDITIONS. LATERALITY WAS CHECK WITH THE PATIENT AND THE STAFF AT THE TIME OF TIME OUT. UNDER FLUOROSCOPIC GUIDANCE, THE TARGET POINT WAS SELECTED AT THE MIDDLE AREA BETWEEN THE LEFT GREATER TROCHANTER OF THE FEMUR AND THE BORDER OF THE SACRUM. LIDOCAINE WAS USED TO NUMB THE SKIN AND THE SUBCUTANEOUS TISSUE BELOW IT. A SPINAL NEEDLE 22 GAUGE WAS ADVANCED UNDER FLUOROSCOPIC GUIDANCE TO THE SUBSTANCE OF THE LEFT PIRIFORMIS MUSCLE. WHEN APPROPRIATE POSITION OF THE NEEDLE WAS ACHIEVED, ISOVUE-M DYE 30%, 0.25 ML WAS INJECTED SHOWING ADEQUATE SPREAD OF THE DYE. THEN A SOLUTION OF 30 ML OF BUPIVACAINE, 0.25%, AND KENALOG 40 MG WAS INJECTED. THERE WAS NO EVIDENCE OF BLOOD, PARESTHESIA OR CEREBROSPINAL FLUID. THE PATIENT WAS SENT TO THE RECOVERY ROOM WHERE SHE WAS MOVING HER EXTREMITIES AND DOING WELL. THERE WERE NO COMPLICATIONS DURING THE PROCEDURE. FLUOROSCOPY TIME WAS 6 SECONDS.POSTOPERATIVE NOTE: I DISCUSSED ALTERNATIVES WITH THE PATIENT. I AM LOOKING FOR LONG-LASTING PAIN RELIEF WITH THIS INTERVENTION. THERE WERE NO COMPLICATIONS. FURTHER RECOMMENDATIONS DEPEND ON HOW THE PATIENT DOES. INSTRUCTIONS WERE GIVEN, QUESTIONS WERE ANSWERED, AND PATIENT REPORTS UNDERSTANDING AND AGREES WITH THE PLAN. I, MASOOD CHRISTOPHER, DOCUMENTED THE ABOVE INFORMATION ACTING A SCRIBE FOR DR. HUNT. I HAVE REVIEWED THE ABOVE DOCUMENT, WRITTEN BY MASOOD RUSHING AND I VERIFY THAT IT IS ACCURATE. DIAGNOSTIC IMAGING [facility] FLUORO GUIDANCE (PAIN)[id number] PROCEDURE CODES 6045F RADXPS IN END [id number] PXD 93041 NEEDLE LOCALIZATION BY XRAY, MODIFIERS: [id number] INJ TRIGGER POINT /2 MUSCL, MODIFIERS: LT DISPOSITION & COMMUNICATION FOLLOW UP 3 WEEKS ELECTRONICALLY SIGNED BY WILLIE HUNT MD, MD ON 09/22/2019 AT 04:48 PM EST DISCLAIMER : THIS IS A VISIT SUMMARY EXTRACTED FROM THE [facility] CHART. IT IS NOT A COPY OF THE [facility] PROGRESS NOTE. MTDD
== END ==
LOC: M PAIN 11:45
PROVIDERS: ATTEND Anesthesiology
DX: M79.18 Myalgia, other site (principal); G57.02 Lesion of sciatic nerve, left lower limb; I10 Essential (primary) hypertension; Z87.891 Personal history of nicotine dependence; Z79.899 Other long term (current) drug therapy
CPT/HCPCS: 20552; 76000; J3301; Q9967

== ENCOUNTER → 2020-07-26 | Outpatient (CLI) | payer MEDICARE ==
--- NOTE | 2020-07-26 16:57 | REPMRS ---
Patient History The patient states she had a clinical breast exam in July 2020. Patient is postmenopausal. Family history of breast cancer in paternal aunt. Reductions of both breasts, 2008. Taking unspecified hormones for 9 years 7 months. Digital Woman Screen Mammo: July 26, 2020 - Exam #: [id number] Bilateral CC and MLO view(s) were taken. Technologist: RT Angi Prior study comparison: July 24, 2019, bilateral digital woman screen mammo performed at [facility]. June 27, 2018, bilateral digital woman screen mammo performed at [facility]. May 20, 2017, digital woman screen mammo performed at [facility]. FINDINGS: There are scattered fibroglandular densities. The Volpara volumetric breast density category is:B. There has been no change in the appearance of the mammogram from the prior studies. There is a mild amount of scattered fibroglandular density which is fairly symmetric. There is no interval development of dominant mass, architectural distortion, or grouped microcalcification suggestive of malignancy. 3-D tomosynthesis shows no additional findings. Assessment: BI-RADS/ACR category 1 mammogram. Negative Mammogram. Recommendation Routine screening mammogram of both breasts in 1 year (for women over age 40). This patient's Lifetime Breast Cancer Risk is estimated at 11.7 %. This mammogram was interpreted with the aid of an FDA-approved computer-aided dectection system. Electronically Signed By: Maged Singh MD 07/26/20 0913
== END ==
LOC: M WHC 15:34
PROVIDERS: ATTEND Nurse Practitioner Family
DX: Z01.419 Encounter for gynecological examination (general) (routine) without abnormal findings (principal); Z12.31 Encounter for screening mammogram for malignant neoplasm of breast; Z78.0 Asymptomatic menopausal state; Z92.29 Personal history of other drug therapy; Z98.890 Other specified postprocedural states
CPT/HCPCS: 77063; 77067; G0101

== ENCOUNTER → 2021-05-26 | Outpatient (CLI) | payer MEDICARE | LOC: M PAIN 14:30 | PROVIDERS: ATTEND Anesthesiology | DX: M71.9 Bursopathy, unspecified (principal); Z87.891 Personal history of nicotine dependence; Z79.899 Other long term (current) drug therapy ==

== ENCOUNTER → 2021-06-10 | Outpatient (CLI) | payer MEDICARE ==
--- NOTE | 2021-06-12 08:59 | REP ---
INDICATION: BURSITIS. COMPARISON: Radiograph 08/13/2019. TECHNIQUE: Multiple sequences obtained in the axial, coronal and sagittal planes. FINDINGS: There is no abnormal bone marrow signal. There is no bone marrow edema or occult fracture of the visualized osseous structures. No hip joint effusion is seen on either side. There is moderate ill-defined high signal on T2 weighted images in the soft tissues surrounding the greater trochanter of the proximal left femur, compatible with moderate greater trochanteric tendonobursitis. Similar signal is seen involving the right common hamstring tendon, at the right ischial tuberosity, compatible with tendinitis or partial tear. The other surrounding soft tissue structures demonstrate no abnormal signal. No mass or adenopathy is seen in the pelvis. There is no free fluid. Urinary bladder is mildly distended and grossly unremarkable. IMPRESSION: Moderate left greater trochanteric tendonobursitis. Tendinitis versus partial tear right common hamstring tendon. <Electronically signed by Hayden Price > 06/12/21 0831
== END ==
LOC: M RAD 11:10
PROVIDERS: ATTEND Anesthesiology
DX: M71.9 Bursopathy, unspecified (principal)

== ENCOUNTER → 2021-06-14 | Outpatient (CLI) | payer MEDICARE ==
[~2021-06-14] MED LIST changes: -BUPIVACAINE HCL 0.25% 30 ML VIAL As Ordered ONE; -ISOVUE-M 300 61% 15ML VIAL (Q9967) As Ordered ONE; -LIDOCAINE 1% SDV INJ 30 ML VIAL As Ordered ONE; -NORCO, ANEXSIA 5/325MG TABLET (HYDROcodone/ACETAMINOPHEN) As Ordered ONE; +OMEGA-3 1000MG CAPSULE ONE; -TRIAMCINOLONE ACETONIDE SUSP 40 MG/ML VIAL (J3301) As Ordered ONE; -diazePAM 5 MG TAB As Ordered ONE
--- NOTE | 2021-06-14 12:40 | REP ---
INDICATION: SOFT TISSUE MASS. COMPARISON: None. TECHNIQUE: Multiple small field of view sequences are obtained in the axial, sagittal and coronal planes without the use of intravenous contrast, at the site of a palpable abnormality in the lateral left thigh. FINDINGS: At the site of the palpable lump, which is marked on the skin, there is focal subcutaneous oval fat signal representing a lipoma. This measures approximately 5.2 x 2.2 cm. Signal is homogeneous with no internal heterogeneity, septal thickening or nodularity. The findings are consistent with a benign lipoma. The underlying left thigh musculature is homogeneous in signal and appears unremarkable. The visualized left femur is also unremarkable. IMPRESSION: At the site of the palpable lump there are MR findings consistent with a benign lipoma, measuring about 5.2 x 2.2 cm. <Electronically signed by Hayden Price > 06/14/21 1233
== END ==
LOC: M PLAIMG 11:07
PROVIDERS: ATTEND Nurse Practitioner Family
DX: M79.9 Soft tissue disorder, unspecified (principal)

== ENCOUNTER → 2021-07-31 | Outpatient (CLI) | payer MEDICARE | LOC: M PAIN 11:15 | PROVIDERS: ATTEND Anesthesiology | DX: M77.9 Enthesopathy, unspecified (principal); M70.60 Trochanteric bursitis, unspecified hip; Z87.891 Personal history of nicotine dependence; Z79.899 Other long term (current) drug therapy ==

== ENCOUNTER → 2021-09-15 | Outpatient (CLI) | payer MEDICARE ==
--- NOTE | 2021-09-15 14:42 | REPMRS ---
Patient History The patient states she has not had a clinical breast exam in over a year. Patient is postmenopausal. Family history of breast cancer in paternal aunt. Reductions of both breasts, 2008. Took estrogen for 10 years 7 months. Taking unspecified hormones for 10 years 7 months. Patient states no breast complaints today. Patient has signed MRS History Sheet. Digital Woman Screen Mammo: September 15, 2021 - Exam #: [id number] Bilateral CC and MLO view(s) were taken. Technologist: Maryann Arita, Technologist Prior study comparison: July 26, 2020, bilateral digital woman screen mammo performed at [facility]. July 24, 2019, bilateral digital woman screen mammo performed at [facility]. FINDINGS: There are scattered fibroglandular densities. Screening. Digital screening (2D) mammography was performed bilaterally in the CC and MLO projections. Additionally, breast tomosynthesis (3D mammography) was performed bilaterally in the CC and MLO projections. Todays exam was compared to the prior exam/exams. By history, the patient has no complaints of a palpable breast abnormality or other significant breast complaints. The breasts are unchanged in size and shape. There are no julius-soft tissue densities or spiculated masses. There is no internal architectural distortion. Once again, stable benign appearing calcifications are seen.There are no suspicious julius-calcific clusters. Skin thickening or nipple retraction is not present. IMPRESSION: BI-RADS Category 2- Benign Findings. There is no evidence of malignant alteration of the breasts. Followup examination recommended in one year. The Volpara volumetric breast density category is B, there are scattered areas of fibroglandular densities. This mammogram was read with the assistance of [facility] [employer],an FDA approved computer aided detection system for mammography. The lifetime Tyrer-Cuzick score is 11.1 % Negative x-ray reports should not delay surgical consultation if a dominant or clinically suspicious mass is present. Not all breast cancers can be identified by mammography. Therefore, we recommend that you continue to perform regular breast self-examination and physical examination and then promptly contact your physician of any concerns or changes. Adenosis and dense breasts may obscure an underlying neoplasm. Assessment: BI-RADS/ACR category 2 mammogram. Benign Findings. Recommendation Routine screening mammogram of both breasts in 1 year. Electronically Signed By: Jorge Ayala DO 09/15/21 0524
--- NOTE | 2021-09-15 14:58 | DEXAMM ---
INDICATION: SCREEN OSTEOPOROSIS. COMPARISON: 05/12/2014 as well as other prior exams. TECHNIQUE: Bone density was measured using dual-energy x-ray absorptiometry (DEXA). FINDINGS: AP SPINE L1-L4 BMD 1.065 g/cm2 Young Adult T-Score -1.0 Age Matched Z-Score 0.6. LT FEMUR, TOTAL BMD 0.877 g/cm2 Young Adult T-Score -1.0 Age Matched Z-Score 0.2. LT NECK BMD 0.891 g/cm2 Young Adult T-Score -1.1 Age Matched Z-Score 0.5. RT FEMUR, TOTAL BMD 0.935 g/cm2 Young Adult T-Score -0.6 Age Matched Z-Score 0.7. RT NECK BMD 0.938 g/cm2 Young Adult T-Score -0.7 Age Matched Z-Score 0.8. IMPRESSION: There is low bone density of the spine. There is low bone density of the left hip. There is normal bone density of the right hip. The density of the spine has increased 2.1% since the initial exam on 08/20/2001. The density of the spine decreased 0.3% since most recent exam on 05/12/2014. The density of the left hip has decreased 13.7% since initial exam on 08/20/2001. The density of the left hip has decreased 12.3% since most recent exam on 05/12/2014. The density of the right hip has decreased 11.5% since the initial exam on 08/20/2001. The density of the right hip has decreased 9.0% since the most recent exam on 05/12/2014. FOLLOW-UP: Recommendation for the next bone density exam: 2 years. <Electronically signed by Hayden Price > 09/15/21 5544
== END ==
LOC: M WHC 13:25
PROVIDERS: ATTEND Nurse Practitioner Family
DX: Z12.31 Encounter for screening mammogram for malignant neoplasm of breast (principal); Z13.820 Encounter for screening for osteoporosis; Z78.0 Asymptomatic menopausal state; Z80.3 Family history of malignant neoplasm of breast; M85.89 Other specified disorders of bone density and structure, multiple sites

== ENCOUNTER → 2021-10-25 | Outpatient (CLI) | payer MEDICARE ==
[2021-10-25 17:16] LABS: BLOOD UREA NITROGEN 17 MG/DL (7-18); CALCIUM LEVEL 9.4 MG/DL (8.8-10.2); CARBON DIOXIDE LEVEL 30 MEQ/L (21-32); CHLORIDE LEVEL 102 MEQ/L (98-107); CREATININE FOR GFR 0.51 MG/DL (0.55-1.30); GLOMERULAR FILTRATION RATE > 60.0 (>45); GLUCOSE, FASTING 106 MG/DL (70-100); POTASSIUM SERUM 3.9 MEQ/L (3.5-5.1); SODIUM LEVEL 135 MEQ/L (136-145)
== END ==
LOC: M LAB 12:49
PROVIDERS: ATTEND Orthopaedic Surgery
DX: Z01.810 Encounter for preprocedural cardiovascular examination (principal)

== ENCOUNTER → 2021-10-25 | Outpatient (CLI) | payer MEDICARE | LOC: M PAIN 10:30 | PROVIDERS: ATTEND Anesthesiology | DX: M76.891 Other specified enthesopathies of right lower limb, excluding foot (principal); I10 Essential (primary) hypertension; K74.60 Unspecified cirrhosis of liver; J30.9 Allergic rhinitis, unspecified; Z87.891 Personal history of nicotine dependence; Z88.8 Allergy status to other drugs, medicaments and biological substances; Z79.891 Long term (current) use of opiate analgesic; Z79.899 Other long term (current) drug therapy ==

== ENCOUNTER → 2021-12-06 | Outpatient (CLI) | payer MEDICARE ==
[~2021-12-06] MED LIST changes: +ALPH300C PO; +BIO IDENTICAL HORM; +CHLO125TA; +CHRO200C2 PO; +CITRTAB18 PO; +CVS1CAP69 PO; +LISI40TA4; +MAGN400C PO; +MILK500C PO; +N-ACCAP PO; -OMEGA-3 1000MG CAPSULE ONE; +SELE200T10 PO; +TIZA2TA; +TRAM50TA2; +VITA-243 PO
[2021-12-06 14:50] LABS: BLOOD UREA NITROGEN 14 MG/DL (7-18); CALCIUM LEVEL 8.9 MG/DL (8.8-10.2); CARBON DIOXIDE LEVEL 29 MEQ/L (21-32); CHLORIDE LEVEL 104 MEQ/L (98-107); CREATININE FOR GFR 0.67 MG/DL (0.55-1.30); GLOMERULAR FILTRATION RATE > 60.0 (>45); GLUCOSE, FASTING 113 MG/DL (70-100); POTASSIUM SERUM 3.9 MEQ/L (3.5-5.1); SODIUM LEVEL 137 MEQ/L (136-145)
== END ==
LOC: M LAB 13:55
PROVIDERS: ATTEND Orthopaedic Surgery
DX: Z01.812 Encounter for preprocedural laboratory examination (principal)

== ENCOUNTER → 2021-12-13 | Outpatient (REF) | payer MEDICARE | LOC: M LAB REF 18:13 | PROVIDERS: ATTEND Orthopaedic Surgery | DX: D17.24 Benign lipomatous neoplasm of skin and subcutaneous tissue of left leg (principal) ==

== ENCOUNTER → 2022-05-07 | Outpatient (CLI) | payer MEDICARE | LOC: M LABSMTC 11:37 | PROVIDERS: ATTEND Anesthesiology | DX: Z11.52 Encounter for screening for COVID-19 (principal); Z20.822 Contact with and (suspected) exposure to COVID-19 ==

== ENCOUNTER → 2022-05-10 | Outpatient (CLI) | payer MEDICARE ==
[~2022-05-10] MED LIST changes: +BUPIVACAINE HCL 0.25% 30ML VIAL As Ordered ONE; +ISOVUE-M 300 61% 15ML VIAL As Ordered ONE; +LIDOCAINE 1% SDV 30ML VIAL As Ordered ONE; +NORCO, ANEXSIA 5/325MG TABLET (HYDROcodone/ACETAMINOPHEN) As Ordered ONE; +TRIAMCINOLONE ACETONIDE SUSP 40 MG/ML VIAL (J3301) As Ordered ONE; +diazePAM 5MG TABLET As Ordered ONE
== END ==
LOC: M PAIN 12:30
PROVIDERS: ATTEND Anesthesiology
DX: M70.71 Other bursitis of hip, right hip (principal); I10 Essential (primary) hypertension; M50.30 Other cervical disc degeneration, unspecified cervical region; K74.60 Unspecified cirrhosis of liver; F10.21 Alcohol dependence, in remission; Z79.891 Long term (current) use of opiate analgesic; Z79.899 Other long term (current) drug therapy
CPT/HCPCS: 20610; 77002; J3301; Q9967

== ENCOUNTER → 2022-06-21 | Outpatient (CLI) | payer MEDICARE ==
[~2022-06-21] MED LIST changes: +AMLO1TAB24; -BUPIVACAINE HCL 0.25% 30ML VIAL As Ordered ONE; -ISOVUE-M 300 61% 15ML VIAL As Ordered ONE; -LIDOCAINE 1% SDV 30ML VIAL As Ordered ONE; -NORCO, ANEXSIA 5/325MG TABLET (HYDROcodone/ACETAMINOPHEN) As Ordered ONE; -TRIAMCINOLONE ACETONIDE SUSP 40 MG/ML VIAL (J3301) As Ordered ONE; -diazePAM 5MG TABLET As Ordered ONE
== END ==
LOC: M PAIN 14:15
PROVIDERS: ATTEND Nurse Practitioner Family
DX: M71.9 Bursopathy, unspecified (principal); I10 Essential (primary) hypertension; M50.30 Other cervical disc degeneration, unspecified cervical region; R01.1 Cardiac murmur, unspecified; Z87.81 Personal history of (healed) traumatic fracture; K74.60 Unspecified cirrhosis of liver; Z87.891 Personal history of nicotine dependence; J30.9 Allergic rhinitis, unspecified; Z88.8 Allergy status to other drugs, medicaments and biological substances

== ENCOUNTER → 2022-11-15 | Outpatient (CLI) | payer MEDICARE ==
[~2022-11-15] MED LIST changes: -CHLO125TA; +CHLO125TA PO; +FOLI1TAB11 PO; -LISI40TA4; +LISI40TA4 PO; +METO1TAB32 PO; -TIZA2TA; +TIZA2TA PO; -TRAM50TA2; +TRAM50TA2 PO; +vitamin b1 PO
== END ==
LOC: M LABSMTC 11:45
PROVIDERS: ATTEND Anesthesiology
DX: Z01.818 Encounter for other preprocedural examination (principal)

== ENCOUNTER 2022-11-20 08:50 | Day surgery (SDC) | payer MEDICARE ==
[~2022-11-20] VITALS: Ht 154.9 cm; Wt 97.3 kg
[~2022-11-20 08:50] MED LIST changes: +NS 1,000 ML IV ONE
[2022-11-20] MEDS ORDERED: LIDOCAINE 2% 100MG/5ML SDV (FOR ANES.) As Ordered ONE (10:09)
[2022-11-20] MEDS ORDERED: propofoL 200 MG/20 ML VIAL As Ordered ONE ×2 (10:09→10:45)
[2022-11-20 11:29] VITALS: BP 146/66
== END 2022-11-20 11:48 | disposition home or self-care (01) ==
LOC: M OPP 08:50
PROVIDERS: ATTEND Internal Medicine Gastroenterology
DX: D12.6 Benign neoplasm of colon, unspecified (principal); K57.30 Diverticulosis of large intestine without perforation or abscess without bleeding; K64.4 Residual hemorrhoidal skin tags; K64.8 Other hemorrhoids; Z98.0 Intestinal bypass and anastomosis status; R19.5 Other fecal abnormalities; K74.60 Unspecified cirrhosis of liver; I85.10 Secondary esophageal varices without bleeding; I86.4 Gastric varices; K29.70 Gastritis, unspecified, without bleeding; Z79.890 Hormone replacement therapy; Z79.891 Long term (current) use of opiate analgesic; Z79.899 Other long term (current) drug therapy; Z88.1 Allergy status to other antibiotic agents; D69.6 Thrombocytopenia, unspecified; Z90.49 Acquired absence of other specified parts of digestive tract

== ENCOUNTER → 2022-12-12 | Outpatient (CLI) | payer MEDICARE ==
[~2022-12-12] MED LIST changes: -NS 1,000 ML IV ONE
== END ==
LOC: M RAD 15:55
PROVIDERS: ATTEND Physician Assistant
DX: D17.21 Benign lipomatous neoplasm of skin and subcutaneous tissue of right arm (principal); R29.898 Other symptoms and signs involving the musculoskeletal system

== ENCOUNTER → 2023-04-05 | Outpatient (CLI) | payer MEDICARE | LOC: M WHC 08:44 | PROVIDERS: ATTEND Internal Medicine Gastroenterology | DX: K76.0 Fatty (change of) liver, not elsewhere classified (principal); K70.30 Alcoholic cirrhosis of liver without ascites; Z90.49 Acquired absence of other specified parts of digestive tract ==

== ENCOUNTER → 2023-05-03 | Outpatient (CLI) | payer MEDICARE ==
[~2023-05-03] MED LIST changes: +MONT10TA97 PO; +NEBI5TAB PO; +THIA100T7 PO; +TIZA10TA PO
== END ==
LOC: M PAIN 14:30
PROVIDERS: ATTEND Nurse Practitioner Family
DX: G57.02 Lesion of sciatic nerve, left lower limb (principal); G89.29 Other chronic pain; I10 Essential (primary) hypertension; M50.30 Other cervical disc degeneration, unspecified cervical region; Z87.891 Personal history of nicotine dependence; Z79.891 Long term (current) use of opiate analgesic; Z79.899 Other long term (current) drug therapy; J30.9 Allergic rhinitis, unspecified; Z88.8 Allergy status to other drugs, medicaments and biological substances

== ENCOUNTER 2023-05-31 06:30 | Day surgery (SDC) | payer MEDICARE ==
[~2023-05-31] VITALS: Ht 157.5 cm; Wt 101.5 kg
[~2023-05-31 06:30] MED LIST changes: +CBD OIL PO; +FLON1SPR; +NS 1,000 ML IV ONE
[2023-05-31] MEDS ORDERED: propofoL 200 MG/20 ML VIAL As Ordered ONE ×2 (07:05→07:49)
[2023-05-31 08:29] VITALS: BP 108/70; TEMP 97.4; O2SAT 97
== END 2023-05-31 08:56 | disposition home or self-care (01) ==
LOC: M OPP 06:30
PROVIDERS: ATTEND Internal Medicine Gastroenterology
DX: Z86.010 Personal history of colon polyps (principal); K57.30 Diverticulosis of large intestine without perforation or abscess without bleeding; K64.4 Residual hemorrhoidal skin tags; K64.8 Other hemorrhoids; K51.419 Inflammatory polyps of colon with unspecified complications; Z98.890 Other specified postprocedural states; Z53.8 Procedure and treatment not carried out for other reasons; Z79.52 Long term (current) use of systemic steroids; Z79.891 Long term (current) use of opiate analgesic; Z79.899 Other long term (current) drug therapy; Z88.1 Allergy status to other antibiotic agents; Z88.3 Allergy status to other anti-infective agents

== ENCOUNTER → 2023-06-27 | Outpatient (CLI) | payer MEDICARE ==
[~2023-06-27] MED LIST changes: +ISOVUE-M 300 61% 15ML VIAL As Ordered ONE; +LIDOCAINE 1% SDV 30ML VIAL As Ordered ONE; +NORCO, ANEXSIA 5/325MG TABLET (HYDROcodone/ACETAMINOPHEN) As Ordered ONE; -NS 1,000 ML IV ONE; +TRIAMCINOLONE ACETONIDE SUSP 40MG/ML 1ML VIAL As Ordered ONE; +diazePAM 5MG TABLET As Ordered ONE
== END ==
LOC: M PAIN 14:30
PROVIDERS: ATTEND Anesthesiology
DX: M79.18 Myalgia, other site (principal); G57.00 Lesion of sciatic nerve, unspecified lower limb; G89.29 Other chronic pain; I10 Essential (primary) hypertension; Z87.891 Personal history of nicotine dependence; Z88.8 Allergy status to other drugs, medicaments and biological substances; E66.01 Morbid (severe) obesity due to excess calories; Z68.41 Body mass index [BMI] 40.0-44.9, adult; Z79.899 Other long term (current) drug therapy
CPT/HCPCS: 20552; 77002; J0665; J3301; Q9967

== ENCOUNTER → 2023-08-07 | Outpatient (CLI) | payer MEDICARE ==
[~2023-08-07] MED LIST changes: -ISOVUE-M 300 61% 15ML VIAL As Ordered ONE; -LIDOCAINE 1% SDV 30ML VIAL As Ordered ONE; -NORCO, ANEXSIA 5/325MG TABLET (HYDROcodone/ACETAMINOPHEN) As Ordered ONE; -TRIAMCINOLONE ACETONIDE SUSP 40MG/ML 1ML VIAL As Ordered ONE; -diazePAM 5MG TABLET As Ordered ONE
== END ==
LOC: M PAIN 14:30
PROVIDERS: ATTEND Anesthesiology
DX: G57.00 Lesion of sciatic nerve, unspecified lower limb (principal); I10 Essential (primary) hypertension; Z87.891 Personal history of nicotine dependence; Z79.891 Long term (current) use of opiate analgesic; Z79.899 Other long term (current) drug therapy

== ENCOUNTER → 2023-08-28 | Outpatient (CLI) | payer MEDICARE | LOC: M PAIN 11:30 | PROVIDERS: ATTEND Anesthesiology | DX: M79.18 Myalgia, other site (principal); R10.2 Pelvic and perineal pain; I10 Essential (primary) hypertension; Z87.891 Personal history of nicotine dependence; Z79.891 Long term (current) use of opiate analgesic; Z79.899 Other long term (current) drug therapy; Z88.8 Allergy status to other drugs, medicaments and biological substances; J30.9 Allergic rhinitis, unspecified | CPT/HCPCS: 76000; G0463 ==

== ENCOUNTER → 2023-09-16 | Outpatient (CLI) | payer MEDICARE | LOC: M WHC 13:20 | PROVIDERS: ATTEND Registered Nurse Community Health | DX: Z12.31 Encounter for screening mammogram for malignant neoplasm of breast (principal); Z13.820 Encounter for screening for osteoporosis; M85.852 Other specified disorders of bone density and structure, left thigh ==

== ENCOUNTER → 2023-09-19 | Outpatient (CLI) | payer MEDICARE | LOC: M PAIN 15:30 | PROVIDERS: ATTEND Nurse Practitioner Family | DX: M79.10 Myalgia, unspecified site (principal); R10.2 Pelvic and perineal pain; Z87.891 Personal history of nicotine dependence; Z88.8 Allergy status to other drugs, medicaments and biological substances; E66.01 Morbid (severe) obesity due to excess calories; Z68.41 Body mass index [BMI] 40.0-44.9, adult; Z79.899 Other long term (current) drug therapy ==

== ENCOUNTER → 2023-10-24 | Outpatient (CLI) | payer MEDICARE | LOC: M WHC 07:29 | PROVIDERS: ATTEND Internal Medicine Gastroenterology | DX: K74.60 Unspecified cirrhosis of liver (principal) ==

== ENCOUNTER → 2025-07-01 | Outpatient (REF) | payer MEDICARE ==
[~2025-07-01] MED LIST changes: +LISI40TA10 PO; -LISI40TA4 PO; -NEBI5TAB PO; +NEBI5TAB2 PO
[2025-07-01 18:44] LABS: APPEARANCE, URINE CLEAR (CLEAR); BACTERIA, URINE AUTO NEGATIVE (NEGATIVE); BILIRUBIN, URINE AUTO NEGATIVE (NEGATIVE); BLOOD, URINE BLOOD 1+ (NEGATIVE); GLUCOSE, URINE (UA) AUTO NEGATIVE (NEGATIVE); KETONE, URINE AUTO NEGATIVE (NEGATIVE); LEUKOCYTE ESTERASE, URINE AUTO NEGATIVE (NEGATIVE); NITRITE, URINE AUTO NEGATIVE (NEGATIVE); PROTEIN, URINE AUTO NEGATIVE (NEGATIVE); RBC, URINE AUTO 3 /HPF (0-3); SPECIFIC GRAVITY URINE AUTO 1.015 (1.002-1.035); SQUAMOUS EPITHELIAL CELL UR AU 0 /HPF (0-6); UROBILINOGEN, URINE AUTO 0.2 mg/dL (0.0-2.0); WBC, URINE AUTO 1 /HPF (0-3)
[2025-07-01 18:54] LABS: BASO # 0.0 10^3/uL (0.0-0.2); BASO % 0.3 % (0.0-1.0); EOS # 0.2 10^3/uL (0.0-0.5); EOS % 2.9 % (0.0-3.0); LYMPH # 2.0 10^3/uL (1.5-5.0); LYMPH % 27.7 % (24.0-44.0); MONO # 0.7 10^3/uL (0.0-0.8); MONO % 9.5 % (2.0-8.0); NEUTROPHILS # 4.3 10^3/uL (1.5-8.5); NEUTROPHILS % 59.5 % (36.0-66.0); PLATELET COUNT, AUTOMATED 118 10^3/uL (150-450)
[2025-07-01 19:12] LABS: ERYTHROCYTE SEDIMENTATION RATE 14 mm/hr (0-30)
[2025-07-01 19:13] LABS: TOTAL PROTEIN,RANDOM URINE 7.4 MG/DL (0.0-14.0)
[2025-07-01 19:20] LABS: C REACTIVE PROTEIN QUANTITATIV < 0.50 MG/DL (<1.0); COMPLEMENT C4 17.7 MG/DL (12-36)
== END ==
LOC: M SFHCRHEU 15:22
PROVIDERS: ATTEND Internal Medicine
DX: R76.8 Other specified abnormal immunological findings in serum (principal)

== ENCOUNTER → 2025-07-02 | Outpatient (CLI) | payer MEDICARE ==
[2025-07-02 17:23] LABS: ESTRADIOL 112.9 PG/ML; LUTEINIZING HORMONE 13.1 mIU/ML
[2025-07-02 17:24] LABS: PROGESTERONE < 0.21 NG/ML
== END ==
LOC: M LAB 14:07
PROVIDERS: ATTEND Obstetrics & Gynecology
DX: N95.1 Menopausal and female climacteric states (principal); E34.9 Endocrine disorder, unspecified; F52.0 Hypoactive sexual desire disorder; M15.9 Polyosteoarthritis, unspecified; M51.360 Other intervertebral disc degeneration, lumbar region with discogenic back pain only; M43.16 Spondylolisthesis, lumbar region

== ENCOUNTER → 2025-07-02 | Outpatient (CLI) | payer MEDICARE | LOC: M RAD 14:11 | PROVIDERS: ATTEND Internal Medicine | DX: M15.9 Polyosteoarthritis, unspecified (principal); M51.360 Other intervertebral disc degeneration, lumbar region with discogenic back pain only; M43.16 Spondylolisthesis, lumbar region ==

== ENCOUNTER → 2025-08-12 | Outpatient (CLI) | payer MEDICARE | LOC: M SOG 07:17 | PROVIDERS: ATTEND Orthopaedic Surgery | DX: M25.561 Pain in right knee (principal); M17.12 Unilateral primary osteoarthritis, left knee ==

== ENCOUNTER 2025-10-12 11:46 | Day surgery (SDC) | payer MEDICARE ==
[~2025-10-12] VITALS: Ht 157.5 cm; Wt 92.5 kg
[~2025-10-12 11:46] MED LIST changes: +KP F1200 PO; +LIDOCAINE 2% 100 MG/5 ML SDV (FOR ANES.) As Ordered ONE; +MELA10TA30 PO; +hormone pellets; +nutrafol PO
[2025-10-12 13:36] VITALS: TEMP 96.8
[2025-10-12 13:56] VITALS: BP 129/61; O2SAT 97
== END 2025-10-12 14:02 | disposition home or self-care (01) ==
LOC: M OPP 11:46
PROVIDERS: ATTEND Internal Medicine Gastroenterology
DX: K70.30 Alcoholic cirrhosis of liver without ascites (principal); I85.10 Secondary esophageal varices without bleeding; K76.6 Portal hypertension; K31.89 Other diseases of stomach and duodenum; I10 Essential (primary) hypertension; R73.03 Prediabetes; F10.21 Alcohol dependence, in remission; Z79.899 Other long term (current) drug therapy; Z88.1 Allergy status to other antibiotic agents; Z90.49 Acquired absence of other specified parts of digestive tract